=== PATIENT | female | born 1965 | race Caucasian/White ===

== ENCOUNTER 2021-05-10 08:06 | Outpatient (CLI) | payer OTHER, SELFPAY ==
[2021-05-10 08:10] VITALS: BP 121/72; PULSE 74; RESP 16; TEMP 36.6; O2SAT 98; BMI 25.4
[2021-05-10 08:40] VITALS: BP 126/80; PULSE 58; RESP 17; TEMP 36.6; O2SAT 98
[2021-05-10 09:50] VITALS: BP 149/94; PULSE 52; RESP 16; TEMP 36.7; O2SAT 99
== END 2021-05-10 08:07 | disposition home or self-care (01) ==
PROVIDERS: PCP Family Medicine; Visit Provider Family Medicine
DX: U07.1 COVID-19 (principal)
CPT/HCPCS: 96365

== ENCOUNTER 2022-02-17 19:11 | Inpatient (IN) | payer OTHER, SELFPAY ==
[2022-02-17] VITALS (51 sets, daily range): BP systolic 116–209; BP diastolic 72–136; PULSE 65–115; RESP 14–28; TEMP 36.6; O2SAT 90–97; BMI 25.6
--- NOTE | 2022-02-17 19:15 | ECG_ITS ---
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 Measurements Intervals [place] Rate: 81 P: -89 CO: 121 QRS: 52 QRSD: 96 T: 193 QT: 338 QTc: 392 Interpretive Statements JUNCTIONAL RHYTHM ST DEVIATION AND MODERATE T-WAVE ABNORMALITY, CONSIDER ANTEROLATERAL ISCHEMIA [-0.1+ mV T-WAVE IN V3-V6] Compared to ECG 02/17/2022 19:57:48 Junctional rhythm now present T-wave abnormality now present Possible ischemia now present Sinus rhythm no longer present ST (T wave) deviation no longer present Electronically Signed On 02-17-2022 21:56:15 CDT by Leo Lim M.D. [id number]
--- NOTE | 2022-02-17 19:15 | XRR_ITS ---
PROCEDURE INFORMATION: Exam: XR Chest Exam date and time: 02/17/2022 7:48 PM Age: 56 years old Clinical indication: Chest wall pain; Additional info: Chest pain TECHNIQUE: Imaging protocol: XR of the chest. Views: 1 view. COMPARISON: No relevant prior studies available. FINDINGS: Lungs: Unremarkable. No consolidation. Pleural spaces: Unremarkable. No pleural effusion. No pneumothorax. Heart/Mediastinum: Unremarkable. No cardiomegaly. Bones/joints: [place] in the right humerus. XR/XR chest 1V portable [id number] IMPRESSION: No acute findings.
--- NOTE | 2022-02-17 19:17 | W.ED.GENADLT ---
HPI - General Adult General: Chief complaint: Chest Pain Stated complaint: cp Time Seen by Provider: 02/17/22 19:16 History of Present Illness: 56-year-old female with history of peripheral artery disease w/ multiple stents, hypertension presenting to the emergency room for evaluation of acute onset chest pain since 7 PM. Patient was walking around at [facility] when she suddenly developed this pain. Patient stopped walking for a little bit and noticed the pain is slightly relieved. Patient reports pain is pressure-like lasting for few minutes at a time so she would lightheadedness and shortness of breath. Patient denies any diaphoresis. Onset:7pm Duration:5 minutes Location: streets Severity:moderate Associated symptoms: Reports chest pain; Deny dyspnea, nausea, rash, palpitations or vomiting Review of Systems Const: Denies: fever(s) or chills Eyes: Denies: change in vision ENMT: Denies: mouth pain Card: Reports: chest pain; Denies: palpitations Resp: Denies: dyspnea or non-productive cough GI: Denies: abdominal pain, nausea, vomiting or diarrhea : Denies: dysuria Musc: Denies: extremity pain Skin/Breast: Denies: rash or new lesions Neuro: Reports: other (+light-headedness); Denies: weakness in extremities Psych: Reports: other (Normal mood) Chris/Lymph: Denies: easy bruising PFS ED PFSH: Medical History (Updated 02/19/22 @ 00:01 by ) Acute electrocardiogram changes Arterial occlusion Chest pain Hypertension NSTEMI (non-ST elevated myocardial infarction) PAD (peripheral artery disease) Tobacco abuse Social History Smoking and tobacco status: current every day smoker Alcohol intake: never Substance/Drug Use: never Physical Exam Const: COMMON NORMALS: alert HENMT: COMMON NORMALS: atraumatic HEAD & SCALP: atraumatic MOUTH: moist mucous membranes not abnormal Eye: COMMON NORMALS: EOMs intact bilaterally and conjunctivae normal CONJUNCTIVA: Yes conjunctivae normal Neck/C-Spine: COMMON NORMALS: full ROM and supple Resp: COMMON NORMALS: normal respiratory effort and clear to auscultation bilaterally AUSCULTATION: clear to auscultation bilaterally Cardio: COMMON NORMALS: regular rate RATE: regular rate OTHER: 2+ radial pulses b/l GI: COMMON NORMALS: Soft to palpation and non-tender PALPATION: Yes Soft to palpation Extremity: COMMON NORMALS: full ROM Neuro: SENSORIUM/ORIENTATION: Yes alert MOTOR EXAM: No Abnormal motor strength present and Other motor observations present (no focal motor deficits) Psych: COMMON NORMALS: speech normal SPEECH: Yes normal speech MOOD & AFFECT: Yes euthymic mood Course Vital Signs: Vital signs: Vital Signs Temperature 97.9 F 02/18/22 17:27 Pulse Rate 70 02/18/22 17: Respiratory Rate 18 02/18/22 17:27 Blood Pressure 142/117 02/18/22 17:27 Pulse Oximetry 95 02/18/22 17:27 MDM - General Adult Medical Decision Making Patient is a 56-year-old female with a history of smoking, hypertension, peripheral artery disease complicated by vascular occlusion presenting to the emergency room with new onset of chest pain and dyspnea since 7 PM. On arrival, patient reports pain is 2 out of 10 currently. Physical exam is unremarkable. Patient received aspirin nitro with mild improvement in pain. Initial EKG did not show any signs of ST elevations. However, will observe in the emergency room, patient suddenly had significant chest pain. EKGs were captured during chest pain showed diffuse ST depression with ST elevation in aVR and V1. Later patient developed T wave inversions in all the leads other than aVL and V1. Patient clearly had dynamic EKG changes. This was communicated with Dr. Lim who recommended nitro drip and close observation. Patient s/p ASA, nitroglycerin SL, and now is on nitro drip Disposition: CSU Lab Data : 02/18/22 04:11 02/18/22 04:11 Radiology Impressions Chest X-Ray 02/17/22 19:15 IMPRESSION: No acute findings. Laboratory Results WBC 9.1 10^3/uL (4.0-10.0) 02/17/22 19:20 RBC 4.39 10^6/uL (4.1-5.3) 02/17/22 19:20 Hgb 13.2 g/dL (11.5-15.3) 02/17/22 19:20 Hct 40.3 % (37.0-47.0) 02/17/22 19:20 MCV 91.8 fl (81-99) 02/17/22 19:20 MCH 30.1 pg (28.0-34.0) 02/17/22 19:20 MCHC 32.8 g/dL (30.0-36.0) 02/17/22 19:20 RDW 12.8 % (12.1-15.1) 02/17/22 19:20 Plt Count 287 10^3/cmm (130-400) 02/17/22 19:20 MPV 10.7 fL (7.4-10.4) H 02/17/22 19:20 Neut % (Auto) 54.2 % 02/17/22 19:20 Lymph % (Auto) 34.7 % 02/17/22 19:20 Canadian % (Auto) 8.0 % 02/17/22 19:20 Eos % (Auto) 2.5 % 02/17/22 19:20 Baso % (Auto) 0.2 % 02/17/22 19:20 Neut # (Auto) 4.92 10^3/uL (1.8-7.7) 02/17/22 19:20 Lymph # (Auto) 3.2 10^3/uL (0.8-4.8) 02/17/22 19:20 Canadian # (Auto) 0.7 10^3/uL (0.2-0.9) 02/17/22 19:20 Eos # (Auto) 0.2 10^3/uL (0.0-0.8) 02/17/22 19:20 Baso # (Auto) 0.0 10^3/uL (0.0-0.1) 02/17/22 19: Nucleated RBC % (auto) 0 % 02/17/22 19: Nucleated RBCs # 0.0 /100WBC 02/17/22 19:20 PT 12.80 SECONDS (12.1-14.9) 02/17/22 19:20 INR 0.93 (0.8-1.2) 02/17/22 19:20 APTT 30.1 SECONDS (23.9-36.7) 02/17/22 19:20 Sodium 141 mmol/L (136-145) 02/17/22 19:20 Potassium 3.2 mmol/L (3.5-5.1) L 02/17/22 19:20 Chloride 104 mmol/L (98-107) 02/17/22 19:20 Carbon Dioxide 25 mmol/L (22-29) 02/17/22 19:20 Anion Gap 15.2 (5-19) 02/17/22 19:20 BUN 5 mg/dL (6-20) L 02/17/22 19:20 Creatinine 1.0 mg/dL (0.5-0.9) H 02/17/22 19:20 GFR Calculation 57.6 mL/min (90-130) L 02/17/22 19:20 Glucose 88 mg/dL (65-115) 02/17/22 19:20 Calculated Osmolality 289 mOsm/kg (285-295) 02/17/22 19:20 Calcium 9.6 mg/dL (8.5-10.5) 02/17/22 19:20 Magnesium 2.0 mg/dL (1.7-2.3) 02/17/22 19:20 Troponin T Baseline 14 ng/L (0-10) H 02/17/22 19:20 Troponin T 120 Minute 41.61 ng/L (0-10) H 02/17/22 21:35 Delta Troponin T 27.61 ABS# (0-10) H* 02/17/22 21:35 TSH 2.79 uIU/mL (0.27-4.20) 02/17/22 19:20 Free T4 1.03 ng/dL (0.82-1.77) 02/17/22 19:20 Discharge Plan Discharge Patient Disposition: Admitted As Inpatient Admit Provider: Edward Cedillo Clinical Impression: Acute electrocardiogram changes, Chest pain Condition: Stable Coding Level of Care Code ED Lapel Padder for Chrisg Fwd Exam Comprehensive
--- NOTE | 2022-02-17 19:32 | ECG_ITS ---
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 Measurements Intervals [place] Rate: 91 P: 46 WV: 157 QRS: 41 QRSD: 88 T: 56 QT: 356 QTc: 438 Interpretive Statements SINUS RHYTHM MINIMAL ST DEPRESSION [0.025+ mV ST DEPRESSION] No previous ECG available for comparison Electronically Signed On 02-17-2022 21:56:33 CDT by Leo Lim M.D. [email or web address] - [facility] [email or web address].[email or web address]/[id number] f
[2022-02-17 19:33] LABS: Basophils % 0.2 %; Eosinophils # 0.2 10^3/uL (0.0-0.8); Eosinophils % 2.5 %; Hematocrit 40.3 % (37.0-47.0); Hemoglobin 13.2 g/dL (11.5-15.3); Lymphocytes # 3.2 10^3/uL (0.8-4.8); Lymphocytes % 34.7 %; Mean Corpuscular HGB Conc 32.8 g/dL (30.0-36.0); Mean Corpuscular Hemoglobin 30.1 pg (28.0-34.0); Mean Corpuscular Volume 91.8 fl (81-99); Mean Platelet Volume 10.7 fL (7.4-10.4); Monocytes # 0.7 10^3/uL (0.2-0.9); Neutrophils # 4.92 10^3/uL (1.8-7.7); Neutrophils % 54.2 %; Nucleated Red Blood Cells % 0 %; Platelet Count 287 10^3/cmm (130-400); Red Blood Count 4.39 10^6/uL (4.1-5.3); Red Cell Distribution Width 12.8 % (12.1-15.1); White Blood Count 9.1 10^3/uL (4.0-10.0)
[2022-02-17] MEDS: aspirin 325 mg Tablet PO (19:52)
[2022-02-17 19:54] LABS: Troponin(5th) Baseline 14 ng/L (0-10)
[2022-02-17 19:55] LABS: Anion Gap 15.2 (5-19); Blood Urea Nitrogen 5 mg/dL (6-20); Calcium 9.6 mg/dL (8.5-10.5); Carbon Dioxide 25 mmol/L (22-29); Chloride 104 mmol/L (98-107); Glomerular Filtration Rate 57.6 mL/min (90-130); Glucose 88 mg/dL (65-115); Osmolality Calculated 289 mOsm/kg (285-295); Potassium 3.2 mmol/L (3.5-5.1); Sodium 141 mmol/L (136-145)
[2022-02-17] MEDS: nitroglycerin 0.4 mg sublingual Tablet SUBLINGUAL (20:00)
--- NOTE | 2022-02-17 20:04 | USCV_ITS ---
Radha Andrade Age: 56 Gender: F : 1965 Exam Date: 02/17/2022 22:21 Ordering Phys: Kamar Marroquin MD Technologist: MACI [place] [facility] [place]ication: Dynamic EKG changes BP: 130 / 92 HR: 74 Rhythm: Sinus Technical Quality: Adequate MEASUREMENTS (Male / Female) Normal Values 2D ECHO LV Diastolic Diameter PLAX 3.6 cm 4.2 - 5.9 / 3.9 - 5.3 cm LV Systolic Diameter PLAX 2.3 cm IVS Diastolic Thickness 1.1 cm 0.6 - 1.0 / 0.6 - 0.9 cm IVS Systolic Thickness 2.1 cm LVPW Diastolic Thickness 1.2 cm 0.6 - 1.0 / 0.6 - 0.9 cm LVPW Systolic Thickness 1.3 cm LVOT Diameter 1.6 cm LV Ejection Fraction 2D Teich 67.6 % LV Ejection Fraction MOD 2C 78.9 % LV Ejection Fraction 2C AL 79.0 % LA Diameter 3.1 cm LA Width 3.2 cm LA Height 3.8 cm RA Width 2.8 cm RA Height 3.3 cm Aorta at Sinotubular Diameter 2.3 cm IVC Diameter 1.5 cm M-MODE Aortic Annulus Diameter 2.9 cm LA Ao Ratio MM 1.2 MV E Point Septal Separation 0.4 cm DOPPLER AV Peak Velocity 111.4 cm/s LVOT Peak Velocity 84.0 cm/s AV Area Cont Eq vti 1.8 cm squared AV Area Cont Eq pk 1.6 cm squared MV Peak Velocity 111.0 cm/s MV Area PHT 2.7 cm squared Mitral E to A Ratio 0.8 MV E' Velocity 43.5 cm/s Mitral E to MV E' Ratio 10.9 Mitral E to LV E' Lateral Ratio 11.9 Mitral E to LV E' Septal Ratio 10.2 TR Peak Velocity 80.5 cm/s TR Peak Gradient 2.6 mmHg TR Mean Velocity 56.8 cm/s TR Mean Gradient 1.4 mmHg TR Velocity Time Integral 18.4 cm Right Atrial Pressure 10.0 mmHg Pulmonary Artery Systolic Pressu 12.6 mmHg PV Peak Velocity 101.0 cm/s RV Acceleration Time 0.1 s RV Ejection Time 0.3 s RV AcT/ET 0.3 FINDINGS Left Ventricle Normal left ventricular size, systolic function and upper normal wall thickness, with no regional wall motion abnormalities. Left ventricular ejection fraction is estimated at 65 %. Normal diastolic function. Right Ventricle Normal right ventricular size and systolic function. Right ventricular systolic pressure 12.6 mmHg. Right Atrium Normal right atrial size. Right atrial pressure estimated at 3 mm Hg. Left Atrium Normal left atrial size. Mitral Valve Structurally normal mitral valve. No mitral valve stenosis. No mitral valve regurgitation. Aortic Valve Structurally normal trileaflet aortic valve. No aortic valve stenosis. No aortic valve regurgitation. Tricuspid Valve Structurally normal tricuspid valve. No tricuspid valve stenosis. Trace tricuspid valve regurgitation. Pulmonic Valve Structurally normal pulmonic valve. No pulmonary valve stenosis. Trace pulmonary valve regurgitation. Pericardium No pericardial effusion. Aorta Normal size aortic root and proximal ascending aorta. IVC Normal IVC dimension with >50% respiratory change of the inferior vena cava. CONCLUSIONS 1. Normal left ventricular size, systolic function and upper normal wall thickness, with no regional wall motion abnormalities. Left ventricular ejection fraction is estimated at 65 %. Normal diastolic function. 2. Normal right ventricular size and systolic function. 3. No significant valvular abnormality. 4. No prior similar studies to compare. Jagruti Deshpande MD (Electronically Signed) Final Date: 18 Feb 2022 07:25 S
[2022-02-17] MEDS: nitroglycerin drip 50 MG/250 ML PREMIX IV (20:10)
[2022-02-17 20:28] LABS: INR 0.93 (0.8-1.2)
[2022-02-17 20:29] LABS: Partial Thromboplastin Time 30.1 SECONDS (23.9-36.7)
--- NOTE | 2022-02-17 21:15 | ECG_ITS ---
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 Measurements Intervals [place] Rate: 97 P: 66 RI: 153 QRS: 55 QRSD: 96 T: 72 QT: 335 QTc: 426 Interpretive Statements SINUS RHYTHM WITH OCCASIONAL ECTOPIC PREMATURE COMPLEXES ST DEPRESSION, CONSIDER SUBENDOCARDIAL INJURY [0.1+ mV ST DEPRESSION] No previous ECG available for comparison Electronically Signed On 02-17-2022 22:01:09 CDT by Leo Lim M.D. [email or web address]:Metricsneshoba county general hospitalInnov Analysis Systemsohio state university [facility].Learning Hyperdrive/store/OM/[id number]
--- NOTE | 2022-02-17 21:55 | PM.HP ---
Providers/Chief Complaint Primary Care Provider: Keesha Marc MD Chief Complaint: cp History of Present Illness The patient is a 56-year-old female who percent she required a chest pain which are possibly some p.m. while she was checking out at [facility]. She states the chest pain was in the substernal area without radiation however she did have throbbing of her left arm as well. She describes the pain as pressure and since the time of onset was intermittent. As worst rated 9 out of 10. Currently rates 1 out of 10. She did not take any medication for the pain at [facility] and immediately presented to the emergency department. With the onset of chest pain she admits to dyspnea, diaphoresis, palpitations, sense of rapid heartbeat. She denies light headedness, dizziness, sensation of irregular heartbeat. The patient has never had cardiac catheterization or a cardiac stress test however she has an extensive history of poor peripheral vascular disease requires requiring stenting and she is a current smoker. She presents for further evaluation Review of Systems General: Reports: 10 or more systems reviewed and unremarkable except in HPI and below Medications/Allergies Home Medications Medication Instructions Recorded Confirmed Last Taken Type amlodipine 2.5 mg tablet 2.5 mg PO DAILY 90 Days #90 tab 01/30/20 02/17/22 02/17/22 Rx clopidogrel 75 mg tablet 75 mg PO DAILY 90 Days #90 tab 01/30/20 02/17/22 02/17/22 Rx rosuvastatin 20 mg tablet 20 mg PO DAILY 90 Days #90 tab 01/30/20 02/17/22 02/17/22 Rx Allergies Allergy/AdvReac Type Severity Reaction Status Date / Time No Known Allergies Allergy Verified 02/17/22 20:02 PFSH Acute PFSH: Medical History Arterial occlusion Hypertension PAD (peripheral artery disease) Social History Smoking and tobacco status: current every day smoker Alcohol intake: never Substance/Drug Use: never Vitals/I&O/Wt Last Vital Signs Temp 98 F 02/17/22 19:19 Pulse 85 02/17/22 21:00 Resp 24 H 02/17/22 21:00 BP 143/77 02/17/22 21:00 Pulse Ox 92 02/17/22 21:00 Weight last 48 hrs Weight 63.503 kg Physical Exam Narrative: General: -Alert -No acute distress -No dyspnea -No tachypnea Head: -Atraumatic -Normocephalic Eyes: -Pupils equally round and reactive to light and accommodation -Extraocular muscles intact Neurological: -Cranial nerves II-XII intact Neck: -No jugular venous distention -No thyromegaly -No cervical lymphadenopathy Heart: -Regular rate -Regular rhythm -No murmurs -No gallops -No rubs Lungs: -No wheeze -No rhonchi -No rales ? Abdomen: -Normal bowel sounds in all four quadrants -No rebound -No guarding -No tenderness Extremities: -2/4 pulse in all four extremities -No clubbing -No cyanosis -No edema -No calf tenderness present bilaterally -Negative Jason?s sign bilaterally Musculoskeletal: -5/5 bilateral upper extremity strength -5/5 bilateral lower extremity strength -Sensorium of bilateral upper extremities are equal and intact -Sensorium of bilateral lower extremities are equal and intact ? Additional Details / Additional Findings / Exceptions / Miscellaneous: Data : 02/17/22 19:20 02/17/22 19:20 A&P Assessment and plan (1) Acute electrocardiogram changes: Status: Acute Plan Chest pain with EKG changes consistent with NSTEMI. Will monitor patient on telemetry and checks her cardiac enzymes. Check TSH, free T4, magnesium level. In the morning we will recheck EKG and check fasting lipid panel. Aspirin 81 Mill grams by mouth daily plus Plavix and 5 Mill grams by mouth daily plus metoprolol 25 Mill cans by mouth twice a day plus Lipitor 80 Mill grams by mouth daily at bedtime plus IV heparin drip per protocol plus IV nitroglycerin drip per protocol. Lexiscan pending. Echo cardiac pending Peripheral vascular disease, status post peripheral stenting. Lipitor 80 Mill grams by mouth daily at bedtime plus aspirin 81 Mill grams by mouth daily plus Plavix and 5 Mill grams by mouth daily Hypokalemia. Will monitor potassium level intermittently and supplement as necessary Hyperlipidemia. Fasting lipid panel pending. Lipitor 80 Mill grams by mouth daily at bedtime Hypertension. Metoprolol 25 Mill grams by mouth twice a day plus IV nitroglycerin drip per protocol Smoker. The patient becomes regarding smoking cessation DVT prophylaxis. IV heparin drip per protocol [facility] Necessity Statement*: Patient's anticipate length of stay is greater than 2 midnights for evaluation and treatment of and STEMI Coding Level of Care Code Acute Jukebox Routeman for Jo-Ann Mcintyre Diagnoses Acute electrocardiogram changes R94.31
[2022-02-17 22:02] LABS: Troponin 5 2HR 41.61 ng/L (0-10)
[2022-02-17 22:08] LABS: Troponin 5 2HR Delta 27.61 ABS# (0-10)
--- NOTE | 2022-02-17 22:09 | PC.NURSE ---
Dr Marroquin made aware of critical troponin. no new orders recieved.
[2022-02-17 22:25] LABS: Free T4 Free Thyroxine 1.03 ng/dL (0.82-1.77); Thyroid Stimulating Hormone 2.79 uIU/mL (0.27-4.20)
--- NOTE | 2022-02-17 23:04 | PC.NURSE ---
attempted to call report
[2022-02-18] VITALS (83 sets, daily range): BP systolic 102–150; BP diastolic 54–120; PULSE 61–89; RESP 14–30; TEMP 36.6; O2SAT 90–99; BMI 28.0
[2022-02-18] MEDS: potassium chloride ER 20 mEq Tablet 40 MEQ PO ×2 (01:01→02:16)
[2022-02-18] MEDS: atorvastatin 40 mg Tablet 80 MG PO (01:01)
--- NOTE | 2022-02-18 01:15 | ECG_ITS ---
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 Measurements Intervals [place] Rate: 62 P: 44 CO: 165 QRS: 42 QRSD: 112 T: 76 QT: 445 QTc: 454 Interpretive Statements SINUS RHYTHM MODERATE INTRAVENTRICULAR CONDUCTION DELAY [110+ ms QRS DURATION] MODERATE T-WAVE ABNORMALITY, CONSIDER ANTEROLATERAL ISCHEMIA [-0.1+ mV T-WAVE IN V3-V6] Compared to ECG 02/17/2022 20:00:36 Intraventricular conduction delay now present Junctional rhythm no longer present T-wave abnormality still present Possible ischemia still present Electronically Signed On 02-18-2022 20:30:06 CDT by Jagruti Deshpande M.D. [email or web address] That Odd/store/[id number]
[2022-02-18 04:42] LABS: Basophils % 0.3 %; Eosinophils # 0.2 10^3/uL (0.0-0.8); Eosinophils % 2.2 %; Hematocrit 36.6 % (37.0-47.0); Hemoglobin 12.1 g/dL (11.5-15.3); Lymphocytes # 2.1 10^3/uL (0.8-4.8); Lymphocytes % 29.5 %; Mean Corpuscular HGB Conc 33.1 g/dL (30.0-36.0); Mean Corpuscular Hemoglobin 30.6 pg (28.0-34.0); Mean Corpuscular Volume 92.7 fl (81-99); Monocytes # 0.6 10^3/uL (0.2-0.9); Monocytes % 7.9 %; Neutrophils # 4.31 10^3/uL (1.8-7.7); Neutrophils % 59.7 %; Nucleated Red Blood Cells % 0 %; Platelet Count 227 10^3/cmm (130-400); Red Blood Count 3.95 10^6/uL (4.1-5.3); Red Cell Distribution Width 12.8 % (12.1-15.1); White Blood Count 7.2 10^3/uL (4.0-10.0)
[2022-02-18 05:10] LABS: Alanine Aminotransferase 22 U/L (0-33); Albumin Level 4.2 g/dL (3.5-5.2); Alkaline Phosphatase 95 IU/L (35-105); Aspartate Amino Transferase 22 U/L (0-32); Blood Urea Nitrogen 6 mg/dL (6-20); Calcium 8.9 mg/dL (8.5-10.5); Carbon Dioxide 24 mmol/L (22-29); Chloride 107 mmol/L (98-107); Chol HDL Ratio 5.27 mg/dL (0.0-4.40); Cholesterol 158 mg/dL (0-200); Globulin 2.6 g/dL (1.3-4.6); Glucose 120 mg/dL (65-115); HDL Cholesterol 30 mg/dL (60-100); LDL Cholesterol Calculated 72 mg/dL (50-129); Osmolality Calculated 291 mOsm/kg (285-295); Sodium 141 mmol/L (136-145); Total Bilirubin 0.3 mg/dL (0.15-1.2); Total Protein 6.8 g/dL (6.6-8.7); Triglycerides 279 mg/dL (0-150)
--- NOTE | 2022-02-18 06:57 | PM.CONSULT ---
Providers/Reason For Consult Consulting Physician/Specialty*: Leo Lim MD/ Cardiology Reason for Consult*: NSTEMI Requesting Physician: Dr Marroquin Attending Physician: Edward Cedillo DO Primary Care Provider: Keesha Marc MD History of Present Illness History of Present Illness Radha Andrade is a 56 year old female with past medical history of peripheral artery disease, smoking and hypertension has presented with on and off chest pain. According to patient she has been having on and off chest discomfort since December. Minimal exertion brings it on. Yesterday it was severe and associated with diaphoresis and dyspnea. In the emergency room EKG showed dynamic changes with anterolateral ST changes and T wave inversions. 2-hour troponin trended up significantly. Review of Systems Const: Denies: fever(s) or chills Eyes: Denies: change in vision ENMT: Denies: mouth pain Card: Reports: chest pain; Denies: palpitations Resp: Denies: dyspnea or non-productive cough GI: Denies: abdominal pain, nausea, vomiting or diarrhea : Denies: dysuria Musc: Denies: extremity pain Skin/Breast: Denies: rash or new lesions Neuro: Reports: other (+light-headedness); Denies: weakness in extremities Psych: Reports: other (Normal mood) Chris/Lymph: Denies: easy bruising Medications/Allergies Home Medications Medication Instructions Recorded Confirmed Last Taken Type amlodipine 2.5 mg tablet 2.5 mg PO DAILY 90 Days #90 tab 01/30/20 02/17/22 02/17/22 Rx clopidogrel 75 mg tablet 75 mg PO DAILY 90 Days #90 tab 01/30/20 02/17/22 02/17/22 Rx rosuvastatin 20 mg tablet 20 mg PO DAILY 90 Days #90 tab 01/30/20 02/17/22 02/17/22 Rx Allergies Allergy/AdvReac Type Severity Reaction Status Date / Time No Known Allergies Allergy Verified 02/17/22 20:02 Current Medications Generic Name Dose Route Start Last Admin Trade Name Freq PRN Reason Stop Dose Admin Atorvastatin Calcium 80 mg 02/18/22 00:00 02/18/22 01:01 Atorvastatin 40 Mg Tablet PO 80 mg BEDTIME ANAND Administration Nitroglycerin/Dextrose 50 mg in 250 mls @ 0 mls/hr 02/17/22 20:00 02/17/22 20:10 Nitroglycerin Drip IV 5 mcg/min .Q0M ANAND 1.5 mls/hr Administration Protocol Per Protocol Nitroglycerin 0.4 mg 02/17/22 19:23 02/17/22 20:00 Nitroglycerin 0.4 Mg Sublingual Tablet SUBLINGUAL 1 tab Q5M PRN Administration CHEST PAIN PFSH Acute PFSH: Medical History (Updated 02/18/22 @ 07:24 by Leo Lim M.D) Arterial occlusion Hypertension PAD (peripheral artery disease) Social History Smoking and tobacco status: current every day smoker Alcohol intake: never Substance/Drug Use: never Vitals/I&O/Wt Last Vital Signs Temp 97.9 F 02/18/22 04:00 Pulse 65 02/18/22 06:25 Resp 22 H 02/18/22 06:25 BP 142/117 02/18/22 06:25 Pulse Ox 98 02/18/22 06:25 02/17/22 02/17/22 02/18/22 14:59 22:59 06:59 Intake Total 200 / 200 Balance 200 / 200 Weight last 48 hrs Weight 153 lb 5 oz Weight 140 lb Physical Exam Narrative: GENERAL: Patient is alert, awake and oriented x3. [] NECK: No jugular vein distension. [] HEENT: No cyanosis. No icterus. No pallor. [] HEART: Regular S1 and S2. No murmur, rub or gallop. [] LUNGS: Clear to auscultate bilaterally. [] ABDOMEN: Soft, nontender and nondistended. Positive bowel sounds. No guarding, rebound or tenderness. [] CENTRAL NERVOUS SYSTEM: Grossly nonfocal. [] EXTREMITIES: Lower extremities with no edema bilaterally. Pulses palpable in the lower extremities, both dorsalis pedis and posterior tibial. [] Data : 02/18/22 04:11 02/18/22 04:11 A&P Assessment and plan (1) NSTEMI (non-ST elevated myocardial infarction): Status: Acute (2) Hypertension: Status: Acute (3) PAD (peripheral artery disease): Status: Acute (4) Tobacco abuse: Status: Acute Plan Patient has presented with typical chest pain and dynamic EKG changes. We will proceed with coronary angiogram with possible percutaneous coronary intervention. Risks and benefits of the procedure have been discussed with the patient who understands these and wants to proceed with the procedure. Continue aspirin and Plavix. Anticoagulation Order echocardiogram Smoking cessation advised. Thank you for involving us with care of this patient. We will continue to follow. Please call with questions Coding Level of Care Code Acute Graduate Student Instructor for Jo-Ann Lawlerd Diagnoses NSTEMI (non-ST elevated myocardial infarction) I21.4 Hypertension I10 PAD (peripheral artery disease) I73.9 Tobacco abuse Z72.0
--- NOTE | 2022-02-18 07:41 | XACV_ITS ---
Exam Room: [facility] Ht: 157 cm Wt: 64 kg BSA: 1.68 m2 Gender: Female : 1965 Any Known Allergies: No known allergies Exam Priority: Routine Procedure(s): Procedure Description: Diagnostic procedure Procedure Description: Left Heart Catheterization Procedure Description: Coronary Angiography Diagnostic Cath Status: Urgent Diagnostic Findings * Left Anterior Descending has severe 90% ostial disease extending from left main artery. * Left Main to Proximal Left Anterior Descending: severe 90% stenosis, JIN: 3 flow. * Proximal Right Coronary Artery: total occlusion, JIN: 0 flow. * Proximal Circumflex: severe 90% stenosis, JIN: 3 flow. * Coronary angiography shows right dominance. Conclusions 1. Severe 2. triple-vessel coronary artery disease. Recommendations * Transfer back to ICU. * We do not have CT surgery backup available. Outpatient work-up will benefit from coronary artery bypass surgery. We will transfer her to a center with CT surgery capability and backup. * Restart heparin drip in 2 hours. Hold Plavix. Continue aspirin. Interventional RX Recommendation: CABG Diagnostic RX Recommendation: CABG Anticoagulation: Heparin Pressures Phase:Rest AO : 132 / 82 ( 105 ) @ 9:05:00 AM 53 / 32 ( 40 ) @ 9:10:00 AM 169 / 83 ( 122 ) @ 9:17:00 AM 177 / 86 ( 125 ) @ 9:17:00 AM LV : 175 / 4 / 18 @ 9:17:00 AM 186 / 2 / 16 @ 9:17:00 AM Valves Phase:DefaultPhase AV : 3.0 @ 8:24:35 AM AV Mean Gradient: 9.0 @ 8:24:35 AM Clinical Evaluation EBL: 5mL-10mL Procedural Details Pre-Procedure Time Out. Identified patient by full name and date of as verbalized by the patient/guarantor. Does the consent match the physician's order: Yes. Accurate & Complete Informed Consent: Yes. Inpatient/Outpatient History & Physical on Chart: Yes. If H&P is completed, is and addenduem needed: No; If yes, is the addendum complete: N/A. Visualize and Verify Site with Patient/Guarantor: N/A. Relevant Radiology Images available: Yes. Pre-op teaching completed and patient verbalized understanding. The risks, benefits, and alternatives of sedation and/or procedure were discussed by physician. The patient agrees to continue. Procedure started. [facility] Clinical Fraility Score: 3: Managing Well. 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 Chest Pain Symptom Assessment: Atypical Angina. Correct patient, site and procedure confirmed by cath team. Current diagnosis: NSTEMI. PERRLA. Strong, equal hand diamond die driller bilaterally. Lungs clear x 5 lobes. Current Diagnosis : NSTEMI. IV Site on Arrival: 20 gauge in the right anticubital. IV Site on Arrival: 20 gauge in the left anticubital. IV Fluids: 0.9% NaCl at KVO. 0 mL infused prior to clinical laboratory service teacher. Pre Procedural Pulses: right radial was 3+. Oxygen started at 2liters/min via nasal canula. right groin was prepped with chloroprep then draped in the usual sterile fashion. right radial was prepped with chloroprep then draped in the usual sterile fashion. Baseline sample Acquired. HR: 72 BPM. Physician arrived. Physician scrubbed in. Immediate Pre-Procedure Time Out. Correct Patient: Yes; Correct Procedure: Yes; Correct Site: Yes; Correct Patient Position: Yes; Correct Supplies: Yes; Dried Flammable Prep: Yes; Blood Products Available: N/A;. Lidocaine 1% infiltrated to the right radial. Arterial access obtained. A 5 namibian TIG catheter in over wire. Multiple views taken of right coronary artery. Catheter redirected to the LCA. Catheter removed over the standard wire. 6 namibian XB 3 guide catheter was inserted over the wire. Multiple views taken of left coronary artery. Catheter removed over the standard wire. Dr. Conway called to review films, no answer. A 5 namibian TIG catheter in over wire. Multiple views taken of right coronary artery. EDP Sample taken: LV 175/4,18; HR: 80 BPM; SpO2: 96%. Pullback taken: LV 186/2,16; AO 169/83(122); Mean: 9mmHg, Peak to Peak: 3mmHg, SEP: 18sec/min; HR: 78 BPM; SpO2: 96%. Catheter removed over the standard wire. Dr. Lim scrubbed out. A TR Band was successful obtaining hemostatsis at the Right Radial artery insertion site. Post Procedure: Pulses reassessed and unchanged. PERRLA. Strong, equal hand diamond die driller bilaterally. No VTE prophylaxis required. Total IV fluids: 38 mL. Contrast type used: Omnipaque 300 mgI/mL, 500 mL bottle. Post-op diagnosis: Multi Vessel CAD. Complications: None. Estimated blood loss: 5mL-10mL. Responsiveness - Normal response to verbal stimuli; alert and oriented, PERRLA. Airway - Unaffected, no intervention required; spontaneous ventilation. Circulation: W/N/L, pulses unchanged. Nausea/Vomiting: No. Medication's Wasted: Lidocaine 1% = 8 mL. Medication's Wasted: Heparin = 1000 units. Medication's Wasted: Other = Versed 1 mg Fentanyl 50 mg. Procedure completed. Vital chart was stopped. Patient transferred by wheelchair to ICU. Access Site Site: Right Radial artery Sheath Size: 6 Fr Hemostasis Method: TR Band Hemostasis Success: Successful Procedure Medications Start: 7:47 AM Stop: 7:47 AM Medication: Versed Amount: 1 mg Route: I.V. Start: 7:48 AM Stop: 7:48 AM Medication: Fentanyl Amount: 50 mcg Route: I.V. Start: 8:01 AM Stop: 8:01 AM Medication: Nitrogylcerin Amount: 200 mcg Route: I.A. Start: 8:03 AM Stop: 8:03 AM Medication: Heparin Amount: 5000 units Route: I.V. I, the attending physician, have reviewed and verified all procedure medications. Yes, all medications given per verbal order History/Risk Factors Hypertension: Yes Dyslipidemia: No Peripheral Arterial Disease (PAD): Yes Myocardial Infarction (PA): No Obesity: No Renal Disease: No Prior Interventions PCI: Yes CABG: No Valve Surgery: No Date of PCI: 06/30/2017 Report Signatures Finalized by Leo Lim MD on 03/02/2022 11:04 PM
--- NOTE | 2022-02-18 07:54 | W.PM.OPSUD ---
Surgery/Procedure H&P Update DATE OF PROCEDURE: February 18, 2022 DATE H&P PERFORMED: 02/18/22 H&P UPDATE INFORMATION: I have reviewed H&P completed within last 30 days, I have examined patient prior to procedure and No changes to prior documentation PREOP DIAGNOSIS: NSTEMI PRIMARY INDICATION FOR PROCEDURE: NSTEMI PLANNED PROCEDURE: Left heart cath with possible percutaneous coronary intervention PATIENT REASSESSED PRIOR TO SEDATION, WITH NO CHANGE NOTED: Yes PHYSICAL EXAM: alert, oriented x 3, clear to auscultation bilaterally and regular rate & rhythm AIRWAY EVAL/ANESTHESIA PLAN: ASA III, Monitored Anesthesia, Local Anesthesia, Risks, benefits & alternatives of sedation and/or procedure discussed and Patient agrees to continue as planned
--- NOTE | 2022-02-18 08:44 | PM.MISC ---
Miscellaneous Note Purpose of Documentation: Brief procedure Note Note: Left heart cath findings Left main artery : Short, Has mid to distal severe 90% stenosis. 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 If CT surgery not available, will need to transfer her out
[2022-02-18] MEDS: aspirin 81 mg Chew Tablet PO (09:13)
[2022-02-18] MEDS: metoprolol tartrate 25 mg Tablet PO (09:13)
[2022-02-18] MEDS: clopidogrel 75 mg Tablet PO (09:14)
--- NOTE | 2022-02-18 10:17 | PC.CHAP ---
Pastoral Care Encounter/Spiritual Assessment Type of Contact [] Declined siding applicator visit [] Patient/Family/Request visit [] Outpatient visit [] Follow-up visit [] Physician referral [] Code/Alert [x] Routine visit [] Staff referral [] Actively dying [] Patient sleeping [] Family support [] [] Out of room [] Palliative care [] [x] Receiving care in room [] Pre-surgical visit [] Trauma [] Long length of stay [x] ICU visit [] Other: Relational/Emotional Strength [] Patient feels connected with others/family/visitors/staff [] Distress [] Loneliness/isolation [] Abandonment Spirituality of Patient [] Person of Elizabeth [] Attends Restorationism of their Elizabeth [] Believes in Prayer [] Reads Bible or Zoroastrian materials [] There are Spiritual issues to be addressed Manager Compliance Interventions [x] Prayer [] Active listening [] Non-anxious presence [] Spiritual/emotional support [] Crisis/trauma care [] Spiritual counseling [] Bereavement support [] Provided bereavement packet [] Provided Bible/devotional materials [] Provided toy/stuffed animal, coloring book to patient or family member [] Provided Communion [] Anointing/[place] [] Salvation [x] Completed spiritual assessment [] Other: Impact on Illness or Injury [] Angry [] Fearful [] Anxious [] Often cries [] Exhaustion [] Unable to work [] Unable to attend jew [] Unable to walk/stand [] Unable to read [] Unable to drive [] Unable to eat/drink [] Unable to sleep [] Unable to be with family [] Patient intubated [] Other: Summary Time spent with patient
--- NOTE | 2022-02-18 11:31 | PM.TDS ---
Transfer Summary Providers Date of Admission: 02/18/22 00:01 Date of Discharge/Transfer: 02/18/22 Attending Provider at Admission: Edward Cedillo DO Attending Provider at Transfer: Declan Ruelas MD Primary Care Provider: Keesha Marc MD Transfer Plans: Anticipated date of transfer: 02/18/22. Diagnoses at Discharge Discharge Diagnosis (1) NSTEMI (non-ST elevated myocardial infarction): Status: Acute (2) Hypertension: Status: Acute (3) PAD (peripheral artery disease): Status: Acute (4) Tobacco abuse: Status: Acute Reason for Visit Reason for Visit cp Hospital Course Hospital Course The patient is a 56-year-old female who percent she required a chest pain which are possibly some p.m. while she was checking out at [facility].? She states the chest pain was in the substernal area without radiation however she did have throbbing of her left arm as well.? She describes the pain as pressure and since the time of onset was intermittent.? As worst rated 9 out of 10.? Currently rates 1 out of 10.? She did not take any medication for the pain at [facility] and immediately presented to the emergency department.? With the onset of chest pain she admits to dyspnea, diaphoresis, palpitations, sense of rapid heartbeat.? She denies light headedness, dizziness, sensation of irregular heartbeat.? The patient has never had cardiac catheterization or a cardiac stress test however she has an extensive history of poor peripheral vascular disease requires requiring stenting and she is a current smoker.? She presents for further evaluation. Status post right radial percutaneous coronary angioplasty which revealed Left heart cath findings Left main artery : Has mid to distal severe 90% stenosis. 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 Patient currently is on nitro drip, re-start heparin once the TR band is removed Patient will be transferred to [facility], she has been accepted by Dr. 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 Routine Exams 02/18/22 07:41 Ordered Sestamibi Stress Test Request Routine Exams 02/18/22 00:00 Ordered Platelet Count Q2D Lab 02/19/22 04:00 Ordered Platelet Count Q2D Lab 02/21/22 04:00 Ordered Labs from last 24 hours 02/18/22 02/18/22 02/18/22 04:11 04:11 01:03 WBC 7.2 RBC 3.95 L Hgb 12.1 Hct 36.6 L MCV 92.7 MCH 30.6 MCHC 33.1 RDW 12.8 Plt Count 227 MPV 11.0 H Neut % (Auto) 59.7 Lymph % (Auto) 29.5 [place] % (Auto) 7.9 Eos % (Auto) 2.2 Baso % (Auto) 0.3 Neut # (Auto) 4.31 Lymph # (Auto) 2.1 [place] # (Auto) 0.6 Eos # (Auto) 0.2 Baso # (Auto) 0.0 Nucleated RBC % (auto) 0 Nucleated RBCs # 0.0 PT INR APTT Sodium 141 Potassium 4.0 Chloride 107 Carbon Dioxide 24 Anion Gap 14.0 BUN 6 Creatinine 0.9 GFR Calculation 65.0 L Glucose 120 H Calculated Osmolality 291 Calcium 8.9 Magnesium Total Bilirubin 0.3 AST 22 ALT 22 Alkaline Phosphatase 95 Troponin T Baseline Troponin T 120 Minute Delta Troponin T Troponin T Hi Sens 6Hr 36.90 H Troponin T Hi Sens 6Hr Delta 22.90 H* Total Protein 6.8 Albumin 4.2 Globulin 2.6 Triglycerides 279 H Cholesterol 158 LDL Cholesterol, Calc 72 HDL Cholesterol 30 L LDL/HDL Ratio 2.40 Cholesterol/HDL Ratio 5.27 H TSH Free T4 02/17/22 02/17/22 02/17/22 21:35 19:20 19:20 WBC RBC Hgb Hct MCV MCH MCHC RDW Plt Count MPV Neut % (Auto) Lymph % (Auto) [place] % (Auto) Eos % (Auto) Baso % (Auto) Neut # (Auto) Lymph # (Auto) [place] # (Auto) Eos # (Auto) Baso # (Auto) Nucleated RBC % (auto) Nucleated RBCs # PT 12.80 INR 0.93 APTT 30.1 Sodium Potassium Chloride Carbon Dioxide Anion Gap BUN Creatinine GFR Calculation Glucose Calculated Osmolality Calcium Magnesium 2.0 Total Bilirubin AST ALT Alkaline Phosphatase Troponin T Baseline Troponin T 120 Minute 41.61 H Delta Troponin T 27.61 H* Troponin T Hi Sens 6Hr Troponin T Hi Sens 6Hr Delta Total Protein Albumin Globulin Triglycerides Cholesterol LDL Cholesterol, Calc HDL Cholesterol LDL/HDL Ratio Cholesterol/HDL Ratio TSH 2.79 Free T4 1.03 02/17/22 02/17/22 02/17/22 19:20 19:20 19:20 WBC 9.1 RBC 4.39 Hgb 13.2 Hct 40.3 MCV 91.8 MCH 30.1 MCHC 32.8 RDW 12.8 Plt Count 287 MPV 10.7 H Neut % (Auto) 54.2 Lymph % (Auto) 34.7 [place] % (Auto) 8.0 Eos % (Auto) 2.5 Baso % (Auto) 0.2 Neut # (Auto) 4.92 Lymph # (Auto) 3.2 [place] # (Auto) 0.7 Eos # (Auto) 0.2 Baso # (Auto) 0.0 Nucleated RBC % (auto) 0 Nucleated RBCs # 0.0 PT INR APTT Sodium 141 Potassium 3.2 L Chloride 104 Carbon Dioxide 25 Anion Gap 15.2 BUN 5 L Creatinine 1.0 H GFR Calculation 57.6 L Glucose 88 Calculated Osmolality 289 Calcium 9.6 Magnesium Total Bilirubin AST ALT Alkaline Phosphatase Troponin T Baseline 14 H Troponin T 120 Minute Delta Troponin T Troponin T Hi Sens 6Hr Troponin T Hi Sens 6Hr Delta Total Protein Albumin Globulin Triglycerides Cholesterol LDL Cholesterol, Calc HDL Cholesterol LDL/HDL Ratio Cholesterol/HDL Ratio TSH Free T4 Completed Studies During Hospitalization Category Date Time Status XR chest 1V portable [id number] Stat Exams 02/17/22 19:15 Completed CV. echo complete* [id number] Urgent Ultrasound 02/17/22 20:04 Completed Laboratory Last Values WBC 7.2 10^3/uL (4.0-10.0) 02/18/22 04:11 RBC 3.95 10^6/uL (4.1-5.3) L 02/18/22 04:11 Hgb 12.1 g/dL (11.5-15.3) 02/18/22 04:11 Hct 36.6 % (37.0-47.0) L 02/18/22 04:11 MCV 92.7 fl (81-99) 02/18/22 04:11 MCH 30.6 pg (28.0-34.0) 02/18/22 04:11 MCHC 33.1 g/dL (30.0-36.0) 02/18/22 04:11 RDW 12.8 % (12.1-15.1) 02/18/22 04:11 Plt Count 227 10^3/cmm (130-400) 02/18/22 04:11 MPV 11.0 fL (7.4-10.4) H 02/18/22 04:11 Neut % (Auto) 59.7 % 02/18/22 04:11 Lymph % (Auto) 29.5 % 02/18/22 04:11 [place] % (Auto) 7.9 % 02/18/22 04:11 Eos % (Auto) 2.2 % 02/18/22 04:11 Baso % (Auto) 0.3 % 02/18/22 04:11 Neut # (Auto) 4.31 10^3/uL (1.8-7.7) 02/18/22 04:11 Lymph # (Auto) 2.1 10^3/uL (0.8-4.8) 02/18/22 04:11 [place] # (Auto) 0.6 10^3/uL (0.2-0.9) 02/18/22 04:11 Eos # (Auto) 0.2 10^3/uL (0.0-0.8) 02/18/22 04:11 Baso # (Auto) 0.0 10^3/uL (0.0-0.1) 02/18/22 04:11 Nucleated RBC % (auto) 0 % 02/18/22 04:11 Nucleated RBCs # 0.0 /100WBC 02/18/22 04:11 PT 12.80 SECONDS (12.1-14.9) 02/17/22 19:20 INR 0.93 (0.8-1.2) 02/17/22 19:20 APTT 30.1 SECONDS (23.9-36.7) 02/17/22 19:20 Sodium 141 mmol/L (136-145) 02/18/22 04:11 Potassium 4.0 mmol/L (3.5-5.1) 02/18/22 04:11 Chloride 107 mmol/L (98-107) 02/18/22 04:11 Carbon Dioxide 24 mmol/L (22-29) 02/18/22 04:11 Anion Gap 14.0 (5-19) 02/18/22 04:11 BUN 6 mg/dL (6-20) 02/18/22 04:11 Creatinine 0.9 mg/dL (0.5-0.9) 02/18/22 04:11 GFR Calculation 65.0 mL/min (90-130) L 02/18/22 04:11 Glucose 120 mg/dL (65-115) H 02/18/22 04:11 Calculated Osmolality 291 mOsm/kg (285-295) 02/18/22 04:11 Calcium 8.9 mg/dL (8.5-10.5) 02/18/22 04:11 Magnesium 2.0 mg/dL (1.7-2.3) 02/17/22 19:20 Total Bilirubin 0.3 mg/dL (0.15-1.2) 02/18/22 04:11 AST 22 U/L (0-32) 02/18/22 04:11 ALT 22 U/L (0-33) 02/18/22 04:11 Alkaline Phosphatase 95 IU/L (35-105) 02/18/22 04:11 Troponin T Baseline 14 ng/L (0-10) H 02/17/22 19:20 Troponin T 120 Minute 41.61 ng/L (0-10) H 02/17/22 21:35 Delta Troponin T 27.61 ABS# (0-10) H* 02/17/22 21:35 Troponin T Hi Sens 6Hr 36.90 ng/L (0-10) H 02/18/22 01:03 Troponin T Hi Sens 6Hr Delta 22.90 ng/L (0-12) H* 02/18/22 01:03 Total Protein 6.8 g/dL (6.6-8.7) 02/18/22 04:11 Albumin 4.2 g/dL (3.5-5.2) 02/18/22 04:11 Globulin 2.6 g/dL (1.3-4.6) 02/18/22 04:11 Triglycerides 279 mg/dL (0-150) H 02/18/22 04:11 Cholesterol 158 mg/dL (0-200) 02/18/22 04:11 LDL Cholesterol, Calc 72 mg/dL (50-129) 02/18/22 04:11 HDL Cholesterol 30 mg/dL (60-100) L 02/18/22 04:11 LDL/HDL Ratio 2.40 RATIO (0.00-3.22) 02/18/22 04:11 Cholesterol/HDL Ratio 5.27 mg/dL (0.0-4.40) H 02/18/22 04:11 TSH 2.79 uIU/mL (0.27-4.20) 02/17/22 19:20 Free T4 1.03 ng/dL (0.82-1.77) 02/17/22 19:20 Radiology Impressions Chest X-Ray 02/17/22 19:15 IMPRESSION: No acute findings. Recent Clincial Data Last Vital Signs Temp 97.9 F 02/18/22 10:00 Pulse 70 02/18/22 10:00 Resp 18 02/18/22 10:00 BP 142/117 02/18/22 10:00 Pulse Ox 95 02/18/22 10:00 Vital Signs Temp Pulse Resp BP Pulse Ox 02/18/22 10:00 97.9 F 70 18 142/117 95 02/18/22 08:00 70 95 02/18/22 07:46 97.9 F 65 98 02/18/22 06:25 65 22 H 142/117 98 02/18/22 06:20 64 15 142/117 96 02/18/22 06:15 71 19 H 142/117 98 02/18/22 06:10 75 16 142/117 97 02/18/22 06:05 77 21 H 142/117 99 02/18/22 06:00 67 22 H 127/76 96 02/18/22 05:55 74 16 127/76 96 02/18/22 05:50 67 21 H 127/76 95 02/18/22 05:45 71 20 H 127/76 94 02/18/22 05:40 127/76 94 02/18/22 05:35 127/76 02/18/22 05:30 73 19 H 127/76 91 02/18/22 05:25 69 17 123/77 90 02/18/22 05:20 70 17 123/77 90 02/18/22 05:15 66 17 123/77 92 05/18/22 05:10 67 17 123/77 91 05/18/22 05:05 70 17 123/77 91 05/18/22 05:00 68 17 123/77 92 05/18/22 04:55 73 18 108/59 95 05/18/22 04:50 73 17 108/59 94 05/18/22 04:45 70 17 108/59 94 05/18/22 04:40 71 18 108/59 95 05/18/22 04:35 69 16 108/59 95 05/18/22 04:30 68 16 108/59 94 05/18/22 04:25 70 16 110/58 95 05/18/22 04:20 65 16 110/58 95 05/18/22 04:15 69 14 110/58 96 05/18/22 04:10 65 19 H 110/58 95 05/18/22 04:05 72 17 110/58 95 05/18/22 04:00 97.9 F 68 19 H 110/58 95 05/18/22 03:55 70 17 102/54 95 05/18/22 03:50 66 23 H 102/54 95 05/18/22 03:45 68 18 102/54 95 05/18/22 03:40 72 28 H 102/54 94 05/18/22 03:35 70 18 102/54 95 05/18/22 03:30 67 17 134/60 05/18/22 03:25 69 21 H 134/60 94 05/18/22 03:20 71 16 134/60 95 05/18/22 03:15 67 16 134/60 95 05/18/22 03:10 65 18 134/60 95 05/18/22 03:05 65 17 134/60 95 05/18/22 03:00 65 20 H 146/72 92 05/18/22 02:55 66 16 146/72 95 05/18/22 02:50 62 19 H 146/72 95 05/18/22 02:45 63 18 146/72 96 05/18/22 02:40 84 28 H 146/72 95 05/18/22 02:35 71 17 146/72 94 05/18/22 02:30 68 18 146/72 94 05/18/22 02:25 70 20 H 128/68 95 05/18/22 02:20 70 16 128/68 95 05/18/22 02:15 83 30 H 128/68 95 02/18/22 02:10 73 19 H 128/68 95 02/18/22 02:05 76 18 128/68 94 02/18/22 02:00 68 17 128/68 94 02/18/22 01:55 64 20 H 148/73 93 02/18/22 01:50 73 14 148/73 97 02/18/22 01:45 64 18 148/73 93 02/18/22 01:40 66 20 H 148/73 93 02/18/22 01:35 68 21 H 148/73 93 02/18/22 01:30 72 21 H 150/120 96 02/18/22 01:25 72 21 H 150/120 96 02/18/22 01:20 68 21 H 150/120 97 02/18/22 01:15 121/75 02/18/22 01:10 121/75 02/18/22 01:05 83 18 121/75 95 02/18/22 01:00 70 17 122/75 90 02/18/22 00:55 68 20 H 122/75 93 02/18/22 00:50 89 22 H 96 02/18/22 00:45 83 19 H 93 02/18/22 00:40 77 20 H 93 02/18/22 00:35 78 18 93 02/18/22 00:30 86 16 94 02/18/22 00:25 75 19 H 96 02/18/22 00:21 69 02/18/22 00:20 69 24 H 96 02/18/22 00:15 83 25 H 96 02/18/22 00:10 20 H 95 02/18/22 00:08 94 Intake & Output/Weight 02/16/22 02/17/22 02/18/22 02/19/22 06:59 06:59 06:59 06:59 Intake Total 200 / 200 Balance 200 / 200 Weight 69.541 kg Vitals Last Vital Signs Temp 97.9 F 02/18/22 10:00 Pulse 70 02/18/22 10:00 Resp 18 02/18/22 10:00 BP 142/117 02/18/22 10:00 Pulse Ox 95 02/18/22 10:00 TS Medications Medications Aspirin (Aspirin 81 Mg Chew Tablet) 81 mg PO DAILY ANAND Last Admin: 02/18/22 09:13 Dose: 81 mg Documented by: Atorvastatin Calcium (Atorvastatin 40 Mg Tablet) 80 mg PO BEDTIME [facility] Last Admin: 02/18/22 01:01 Dose: 80 mg Documented by: Clopidogrel Bisulfate (Clopidogrel 75 Mg Tablet) 75 mg PO DAILY [facility] Last Admin: 02/18/22 09:14 Dose: 75 mg Documented by: Heparin Sodium (Porcine) (Heparin 5,000 Unit/Ml Inj 1 Ml) 0 unit IV PRN PRN; Protocol PRN Reason: Heparin weight-base protocol Nitroglycerin/Dextrose (Nitroglycerin Drip) 50 mg in 250 mls @ 0 mls/hr IV .Q0M [facility]; Protocol Last Admin: 02/17/22 20:10 Dose: 5 mcg/min, 1.5 mls/hr Documented by: Heparin Sodium/Sodium Chloride (Heparin Drip) 25,000 unit in 500 mls @ 0 mls/hr IV .Q0M [facility]; Protocol Nitroglycerin/Dextrose (Nitroglycerin Drip) 50 mg in 250 mls @ 0 mls/hr IV .Q0M [facility]; Protocol Metoprolol Tartrate (Metoprolol Tartrate 25 Mg Tablet) 25 mg PO BID@0900,2100 [facility] Last Admin: 02/18/22 09:13 Dose: 25 mg Documented by: Morphine Sulfate (Morphine 4 Mg/Ml Sdv 1 Ml) 4 mg IVP Q4H PRN PRN Reason: SEVERE PAIN Nitroglycerin (Nitroglycerin 0.4 Mg Sublingual Tablet) 0.4 mg SUBLINGUAL Q5M PRN PRN Reason: CHEST PAIN Last Admin: 02/17/22 20:00 Dose: 1 tab Documented by: Ondansetron HCl (Ondansetron 2 Mg/Ml Sdv 2 Ml) 4 mg IVP Q6H PRN PRN Reason: NAUSEA AND VOMITING Discontinued Medications Aspirin (Aspirin 325 Mg Tablet) 325 mg PO ONCE ONE Stop: 02/17/22 19:24 Last Admin: 02/17/22 19:52 Dose: 325 mg Documented by: Fentanyl (Fentanyl 50 Mcg/Ml Inj 2ml) Confirm Administered Dose 100 mcg .ROUTE .STK-MED ONE Stop: 02/18/22 07:16 Heparin Sodium (Porcine) (Heparin 5,000 Unit/Ml Inj 1 Ml) Confirm Administered Dose 10,000 unit .ROUTE .STK-MED ONE Stop: 02/18/22 07:17 Lidocaine HCl (Lidocaine 1%) Confirm Administered Dose 10 mls @ as directed .ROUTE .STK-MED ONE Stop: 02/18/22 07:16 Sodium Chloride (Sodium Chloride 0.9%) Confirm Administered Dose 1,000 mls @ as directed .ROUTE .STK-MED ONE Stop: 02/18/22 07:45 Midazolam HCl (Midazolam 1 Mg/Ml Inj 2 Ml) Confirm Administered Dose 2 mg .ROUTE .STK-MED ONE Stop: 02/18/22 07:16 Potassium Chloride (Potassium Chloride Er 20 Meq Tablet) 40 meq PO Q1H ANAND Stop: 02/18/22 01:01 Last Admin: 02/18/22 02:16 Dose: 40 meq Documented by: Verapamil HCl (Verapamil 2.5 Mg/Ml Inj 2ml) Confirm Administered Dose 5 mg .ROUTE .STK-MED ONE Stop: 02/18/22 07:16 Allergies No Known Allergies Allergy (Verified 02/17/22 20:02) Home Medications amlodipine 2.5 mg tablet 2.5 mg PO DAILY 90 Days #90 tab 01/30/20 [Rx Confirmed 02/17/22] clopidogrel 75 mg tablet 75 mg PO DAILY 90 Days #90 tab 01/30/20 [Rx Confirmed 02/17/22] rosuvastatin 20 mg tablet 20 mg PO DAILY 90 Days #90 tab 01/30/20 [Rx Confirmed 02/17/22] Discharge Plan Discharge Patient Disposition: Home Condition: Stable Prescriptions: Continued amlodipine 2.5 mg tablet 2.5 mg PO DAILY 90 Days Qty: 90 3RF clopidogrel 75 mg tablet 75 mg PO DAILY 90 Days Qty: 90 3RF rosuvastatin 20 mg tablet 20 mg PO DAILY 90 Days Qty: 90 3RF Discharge Orders: Transfer Out of Facility (Order); Ordered 02/18/22 Ordered By: Declan Ruelas Referrals: Keesha Marc MD [Primary Care Provider] - Patient Instructions: Opioid Safety Transfer Attestations Time Spent in Transfer Care: less than 30 min Quality Metrics Clinical Quality Measures [ No reported AMI, CVA or VTE this stay] Coding Level of Care Code Acute Turn Down Attendant for [facility] Fwd Diagnoses NSTEMI (non-ST elevated myocardial infarction) I21.4 Hypertension I10 PAD (peripheral artery disease) I73.9 Tobacco abuse Z72.0
[2022-02-18] MEDS: heparin drip 25,000 UNIT/500 ML PREMIX 17.78 UNIT IV (14:49)
== END 2022-02-18 14:20 | disposition short-term general hospital (02) | DRG 282 ==
LOC: ER 20:05 → ICU 23:17
PROVIDERS: Internal Medicine; Admitting Provider Internal Medicine; Emergency Provider Emergency Medicine; PCP Family Medicine; Visit Provider Internal Medicine
PROC: 4A023N7 Measurement of Cardiac Sampling and Pressure, Left Heart, Percutaneous Approach (ICD-10-PCS; principal; 2022-02-18 08:30)
DX: I21.4 Non-ST elevation (NSTEMI) myocardial infarction (principal); I25.10 Atherosclerotic heart disease of native coronary artery without angina pectoris; I73.9 Peripheral vascular disease, unspecified; Z95.820 Peripheral vascular angioplasty status with implants and grafts; I10 Essential (primary) hypertension; F17.200 Nicotine dependence, unspecified, uncomplicated; E87.6 Hypokalemia; E78.5 Hyperlipidemia, unspecified; Z79.02 Long term (current) use of antithrombotics/antiplatelets
CPT/HCPCS: 36415; 71045; 80048; 80053; 80061; 83735; 84439; 84443; 84484; 85025; 85610; 85730; 93005; 93306; 93452; 93458; 96360; 96374; 99152; 99153; 99291; C1769; C1887; C1894; J1644; J2250; J3010; J3490; J7030; Q9967